=== PATIENT | female | born 1970 | race Caucasian/White ===

== ENCOUNTER 2017-04-11 15:45 | Emergency (ER) | payer MEDICAID ==
[~2017-04-11] VITALS: Ht 167.6 cm; Wt 150.0 kg
[~2017-04-11 15:45] MED LIST: CYCL-319 PO; HYDR-1666 PO; IBUP-1542 PO; IBUP-727 PO; PERCOCET; TRAM50TA2 PO
[2017-04-11 15:50] VITALS: Ht 167.6 cm; Wt 150.0 kg
[2017-04-11] MEDS ORDERED: ACETAMINOPHEN 500 MG TAB PO STA (16:18)
[2017-04-11] MEDS ORDERED: ASPIRIN 325 MG TAB PO STA (16:18)
[2017-04-11] MEDS ORDERED: SOD CHLORIDE 0.9% 1,000 ML IV STA (16:18)
--- NOTE | 2017-04-11 16:56 | RADRPT ---
PROCEDURE: XR Chest AP portable CLINICAL INDICATION: Chest pain TECHNIQUE: An AP portable radiograph of the chest was submitted. COMPARISON: 06/04/2013 FINDINGS: Support Hardware: None Cardiovascular: The heart remains upper normal in size with the pulmonary vasculature unremarkable. Lung Kemp: The patient is taken a poor inspiratory effort compressing lung parenchyma exaggerating the interstitial markings. No discrete alveolar infiltrate is evident. Pleural Spaces: No pneumothorax or pleural effusion is identified. Osseous Structures: The osseous structures appear intact. Soft Tissues: The right hemidiaphragm is now moderately elevated. The soft tissues appear generous. IMPRESSION: 1. Poor inspiratory effort compresses lung parenchyma exaggerating the interstitial markings. 2. Moderate elevation of the right hemidiaphragm worsened from the previous. Physician Eva Date Time Electronically viewed and signed by Physician Eva on 04/11/2017 16:55 /
[2017-04-11 17:11] LABS: BASOPHIL # 0.1 10^3/ul (0.0-0.1); BASOPHILS % 0.5 % (0.0-2.0); EOSINOPHILS # 0.2 10^3/ul (0.0-0.5); EOSINOPHILS % 1.6 % (0.0-7.0); HEMATOCRIT 45.5 % (37.0-47.0); HEMOGLOBIN 14.3 g/dl (12.0-16.0); LYMPHOCYTES # 2.1 10^3/ul (0.8-2.9); LYMPHOCYTES % 22.3 % (15.0-51.0); MEAN CORPUSCULAR HEMOGLOBIN 28.9 pg (29.0-33.0); MEAN CORPUSCULAR HGB CONC 31.4 g/dl (32.0-37.0); MEAN CORPUSCULAR VOLUME 92.1 fl (82.0-101.0); MONOCYTE # 0.8 10^3/ul (0.3-0.9); MONOCYTES % 8.8 % (0.0-11.0); NEUTROPHIL # 6.3 10^3/ul (1.6-7.5); NEUTROPHILS % 66.2 % (39.0-77.0); PLATELET COUNT 326 10^3/UL (140-415); RED BLOOD COUNT 4.94 10^6/ul (4.20-5.40); RED CELL DISTRIBUTION WIDTH 13.8 % (11.5-14.5); WHITE BLOOD COUNT 9.5 10^3/ul (4.8-10.8)
[2017-04-11 17:47] VITALS: BP 141/96; PULSE 67; RESP 18
[2017-04-11 17:57] LABS: B-TYPE NATRIURETIC PEPTIDE 135 PG/ML (0-125)
[2017-04-11 17:59] LABS: ALANINE AMINOTRANSFERASE 51 IU/L (13-69); ALBUMIN 4.3 g/dl (3.3-4.9); ALBUMIN/GLOBULIN RATIO 1.19; ALKALINE PHOSPHATASE 112 IU/L (42-121); ANION GAP 14 (8-16); ASPARTATE AMINO TRANSFERASE 34 IU/L (15-46); BILIRUBIN,INDIRECT 0.1 mg/dl (0-1.1); BILIRUBIN,TOTAL 0.1 mg/dl (0.2-1.3); BLOOD UREA NITROGEN 13 mg/dl (7-20); CALCIUM 9.8 mg/dl (8.4-10.2); CARBON DIOXIDE 27 mmol/L (21-31); CHLORIDE 105 mmol/L (97-110); CREATININE 0.92 mg/dl (0.44-1.00); GLUCOSE 81 mg/dl (70-220); POTASSIUM 4.4 mmol/L (3.5-5.1); SODIUM 142 mmol/L (135-144); TOTAL PROTEIN 7.9 g/dl (6.1-8.1); TROPONIN-I < 0.012 ng/ml (0.00-0.12)
[2017-04-11 18:10] LABS: ADD UMIC NO; UR ASCORBIC ACID NEGATIVE (NEGATIVE); UR BILIRUBIN (Dip) NEGATIVE (NEGATIVE); UR BLOOD (Dip) NEGATIVE (NEGATIVE); UR CLARITY SLIGHTLY CLOUDY (CLEAR); UR COLOR YELLOW (YELLOW); UR GLUCOSE (Dip) NEGATIVE (NEGATIVE); UR KETONES (Dip) NEGATIVE (NEGATIVE); UR LEUKOCYTE ESTERASE (Dip) NEGATIVE Leu/ul (NEGATIVE); UR NITRITE (Dip) NEGATIVE (NEGATIVE); UR RBC 1 /HPF (0-5); UR SPECIFIC GRAVITY (Dip) 1.016 (1.003-1.030); UR SQUAMOUS EPITHELIAL CELL FEW /HPF (FEW); UR TOTAL PROTEIN (Dip) NEGATIVE (NEGATIVE); UR UROBILINOGEN (Dip) NEGATIVE (NEGATIVE)
[2017-04-11] MEDS ORDERED: ONDANSETRON 4 MG INJ IV STA (18:14)
--- NOTE | 2017-04-11 18:59 | ERD ---
ER Documentation Chief Complaint Chief Complaint Complains of a headache that radiates down the neck and chest pain HPI This 46-year-old female presents with a mild intermittent headache at the back of her head. Has an intermittent substernal and left-sided chest pain that is been going on today. Described as a sharp stinging pain. He also felt dizzy and states that she was helping her son with schooling earlier she had more trouble understanding things than usual. She states that she has been urinating more than usual. Denies fever chills. Does have some mild nausea intermittently. No vomiting ROS All systems reviewed and are negative except as per history of present illness. Medications Home Meds Discontinued Reported Medications [Percocet] No Conflict Check 04/19/11 Ibuprofen (Motrin) 600 Mg Tablet, 600 MG PO Q6 04/02/11 Hydrocodone Bit/Acetaminophen (Vicodin 5/500 Tablet) 1 Tab Tablet, 1 TAB PO Q4 04/02/11 Discontinued Scripts Ibuprofen* (Motrin*) 600 Mg Tab, 600 MG PO Q8 for 10 Days, #30 TAB 0 Refills Prov:NABEEL CORDOVA PA-C 02/08/16 Cyclobenzaprine Hcl* (Cyclobenzaprine Hcl*) 10 Mg Tablet, 10 MG PO TID, #20 TAB Prov:MEAGHAN SAMSON MD 12/21/15 Tramadol HCl (Tramadol HCl) 50 Mg Tablet, 50 MG PO Q4 Y for PAIN, #20 TAB Prov:MEAGHAN SAMSON MD 12/21/15 Allergies Allergies: Coded Allergies: No Known Drug Allergy (Verified Allergy, Mild, 04/11/17) PMhx/Soc History of Surgery: Yes (c section , cholecystectomy ) Anesthesia Reaction: No Hx Neurological Disorder: No Hx Respiratory Disorders: No Hx Cardiac Disorders: No Hx Psychiatric Problems: No Hx Miscellaneous Medical Probl: No Hx Alcohol Use: No Hx Substance Use: No Hx Tobacco Use: No Smoking Status: Never smoker Physical Exam Vitals Vital Signs Date Time Temp Pulse Resp B/P Pulse Ox O2 Delivery O2 Flow Rate FiO2 04/11/17 17:47 67 18 141/96 100 Room Air 04/11/17 16:46 88 18 139/91 99 Room Air 04/11/17 15:50 98.3 74 20 179/118 98 Physical Exam Const: [] Head: Atraumatic Eyes: Normal Conjunctiva ENT: Normal External Ears, Nose and Mouth. Neck: Full range of motion..~ No meningismus. Resp: Clear to auscultation bilaterally Cardio: Regular rate and rhythm, no murmurs Abd: Soft, non tender, non distended. Normal bowel sounds Skin: No petechiae or rashes Back: No midline or flank tenderness Ext: No cyanosis, or edema Neur: Awake and alert Psych: Normal Mood and Affect Result Diagram: 04/11/17 1625 04/11/17 162 Results 24 hrs Laboratory Tests Test 04/11/17 16:25 04/11/17 17:00 White Blood Count 9.510^3/ul Red Blood Count 4.9410^6/ul Hemoglobin 14.3g/dl Hematocrit 45.5% Mean Corpuscular Volume 92.1fl Mean Corpuscular Hemoglobin 28.9pg Mean Corpuscular Hemoglobin Concent 31.4g/dl Red Cell Distribution Width 13.8% Platelet Count 87378^3/UL Mean Platelet Volume 10.0fl Neutrophils % 66.2% Lymphocytes % 22.3% Monocytes % 8.8% Eosinophils % 1.6% Basophils % 0.5% Nucleated Red Blood Cells % 0.0/100WBC Neutrophils # 6.310^3/ul Lymphocytes # 2.110^3/ul Monocytes # 0.810^3/ul Eosinophils # 0.210^3/ul Basophils # 0.110^3/ul Nucleated Red Blood Cells # 0.010^3/ul Sodium Level 142mmol/L Potassium Level 4.4mmol/L Chloride Level 105mmol/L Carbon Dioxide Level 27mmol/L Anion Gap 14 Blood Urea Nitrogen 13mg/dl Creatinine 0.92mg/dl Glucose Level 81mg/dl Calcium Level 9.8mg/dl Total Bilirubin 0.1mg/dl Direct Bilirubin 0.00mg/dl Indirect Bilirubin 0.1mg/dl Aspartate Amino Transf (AST/SGOT) 34IU/L Alanine Aminotransferase (ALT/SGPT) 51IU/L Alkaline Phosphatase 112IU/L Troponin I < 0.012ng/ml B-Type Natriuretic Peptide 135PG/ML Total Protein 7.9g/dl Albumin 4.3g/dl Globulin 3.60g/dl Albumin/Globulin Ratio 1.19 Urine Color YELLOW Urine Clarity SLIGHTLY CLOUDY Urine pH 7.0 Urine Specific [place] 1.016 Urine Ketones NEGATIVEmg/dL Urine Nitrite NEGATIVEmg/dL Urine Bilirubin NEGATIVEmg/dL Urine Urobilinogen NEGATIVEmg/dL Urine Leukocyte Esterase NEGATIVELeu/ul Urine Microscopic RBC 1/HPF Urine Microscopic WBC 2/HPF Urine Squamous Epithelial Cells FEW/HPF Urine Hemoglobin NEGATIVEmg/dL Urine Glucose NEGATIVEmg/dL Urine Total Protein NEGATIVEmg/dl Current Medications Medications (Trade) Dose Ordered Sig/Tristen Route PRN Reason Start Time Stop Time Status Last Admin Dose Admin Sodium Chloride (NS) 1,000 ml @ 1,000 mls/hr Q1H STAT IV 04/11/17 16:18 04/11/17 17:17 DC 04/11/17 16:34 Aspirin (Aspirin) 325 mg ONCE STAT PO 04/11/17 16:18 04/11/17 16:27 DC 04/11/17 16:34 Acetaminophen (Tylenol Tab) 1,000 mg ONCE STAT PO 04/11/17 16:18 04/11/17 16:27 DC 04/11/17 16:33 Ondansetron HCl (Zofran Inj) 4 mg ONCE STAT IV 04/11/17 18:14 04/11/17 18:15 DC Procedures/MDM 46-year-old female with multiple symptoms with complete negative workup. Patient is functional and would prefer to go home at this point. Also given IV fluid. Is given Tylenol and aspirin in the emergency room which did help with her headaches somewhat. Chest pain still came intermittently and went. She has no signs of cardiac ischemia, infection. She does not want a CAT scan of her head because she has had it before and is pretty sure would be negative. Urinary tract infection would have explained her symptoms but her urine is clean even with full microscopy. Recommending that she obtain an MRI and echocardiogram as an outpatient. Primary care follow-up in 2-3 days and return precautions EKG interpretation: Normal sinus rhythm rate of 92, axis deviation, right bundle branch block, no ST or T-wave changes concerning for acute ischemia. cardiac monitor technician interpretation: Normal sinus rhythm without arrhythmia. Interpretation: I see no acute process, poor inspiration, however I see no infiltrates, no widened mediastinum, pneumothorax, no fractures. Departure Diagnosis: Primary Impression: Lightheadedness Additional Impressions: Headache Chest pain Condition: Fair Patient Instructions: Self-Care for Headaches, Chest Pain, Uncertain Cause, Dizziness, Unk Cause Additional Instructions: Call your primary care doctor TOMORROW for an appointment during the next 2-3 days. Obtain a referral for an ECHOCARDIOGRAM and a BRAIN MRI. See the doctor sooner or return here if your condition worsens before your appointment time. AMMON POLLACK DO Apr 11, 2017 18:59
== END 2017-04-11 18:31 | disposition home or self-care (01) ==
LOC: E/R 15:45
DX: R42 Dizziness and giddiness (principal); R07.9 Chest pain, unspecified; R40.2142 Coma scale, eyes open, spontaneous, at arrival to emergency department; R40.2252 Coma scale, best verbal response, oriented, at arrival to emergency department; R40.2362 Coma scale, best motor response, obeys commands, at arrival to emergency department; R06.02 Shortness of breath
CPT/HCPCS: 36415; 71010; 80053; 81001; 83880; 84484; 85025; J7030; Z7502; Z7610; 81003; 93005

== ENCOUNTER 2017-08-31 14:03 | Emergency (ER) | END 2017-08-31 22:10 | disposition home or self-care (01) ==